=== PATIENT | female | born 1955 | race Asian ===

== ENCOUNTER 2020-08-21 10:23 | Emergency (ER) | payer OTHER ==
--- NOTE | 2020-08-21 10:41 | ED Physician Documentation ---
PD HPI DYSPNEA - Stated complaint Stated Complaint: SHORTNESS OF BREATHE, PAIN IN CHEST - Chief complaint Chief Complaint: Resp - History obtained from History obtained from: Patient - History of Present Illness Timing - onset: How many weeks ago (1) Timing - onset during: Light activity Timing - duration: Weeks (1) Timing - details: Gradual onset, Waxing and waning Inciting event(s): Other (has had 2 things: feeling of vertigo with head movement for a week, similar to prior episodes of vertigo. Also with feeling of dyspnea/chest tightness, episodic.). No: Out of meds, URI Associated symptoms: Cough (mild nonproductive), Chest pain / discomfort (at times). No: Fever, Hemoptysis, Wheezing, Palpitations, Bilateral edema Similar symptoms before: Has not had sx before (not the dyspnea, but has had episodic vertigo.) Recently seen: Not recently seen Review of Systems Constitutional: reports: Fatigue. denies: Fever, Chills, Myalgias Nose: denies: Rhinorrhea / runny nose, Congestion Throat: denies: Sore throat Cardiac: reports: Chest pain / pressure. denies: Palpitations, Pedal edema, Calf pain Respiratory: reports: Dyspnea, Cough. denies: Hemoptysis, Wheezing GI: reports: Nausea. denies: Abdominal Pain, Vomiting, Diarrhea Neurologic: reports: Generalized weakness. denies: Focal weakness, Numbness, Near syncope PD PAST MEDICAL HISTORY - Past Medical History Cardiovascular: None Respiratory: None Neuro: None Endocrine/Autoimmune: None HEENT: Other (episodic vertigo) - Present Medications Home Medications: Ambulatory Orders Medication Instructions Recorded Confirmed Aspirin [Aspirin EC] 81 mg PO DAILY 08/21/20 08/21/20 Atenolol [Tenormin] 50 mg PO DAILY 08/21/20 08/21/20 Lisinopril [Prinivil] 10 mg PO DAILY 08/21/20 08/21/20 Meclizine [Antivert] 25 mg PO Q6H PRN #30 tablet 08/21/20 Omeprazole 20 mg PO DAILY 08/21/20 08/21/20 Simvastatin [Zocor] 40 mg PO DAILY 08/21/20 08/21/20 Sucralfate [Carafate] 1 gm PO ACHS #28 tablet 08/21/20 metFORMIN [Glucophage] 500 mg PO TID 08/21/20 08/21/20 - Allergies Allergies/Adverse Reactions: Allergies Allergy/AdvReac Type Severity Reaction Status Date / Time No Known Drug Allergies Allergy Verified 08/21/20 10:27 PD ED PE NORMAL - Vitals Vital signs reviewed: Yes - General General: Alert and oriented X 3, No acute distress, Well developed/nourished - HEENT HEENT: PERRL, EOMI, Ears normal, Moist mucous membranes, Pharynx benign - Neck Neck: Supple, no meningeal sign, No adenopathy - Cardiac Cardiac: RRR, No murmur - Respiratory Respiratory: No respiratory distress, Clear bilaterally - Abdomen Abdomen: Normal bowel sounds, Soft, Non distended, No organomegaly, Other (mild discomfort epigastric area) - Back Back: No CVA TTP - Derm Derm: Normal color, Warm and dry - Extremities Extremities: No tenderness to palpate, Normal ROM s pain, No edema, No calf tenderness / cord Results - Vitals Vitals: Vital Signs - 24 hr 08/21/20 08/21/20 08/21/20 10:27 11:00 13:36 Temperature 36.8 C 36.9 C 36.7 C Heart Rate 92 76 96 Respiratory 16 18 18 Rate Blood Pressure 181/97 H 156/95 H 163/93 H O2 Saturation 97 97 100 Oxygen O2 Source Room air - EKG (time done) 10:45 Rate: Rate (enter#) (73) Rhythm: NSR [place]: Normal Intervals: Normal UT QRS: Normal Ischemia: Normal ST segments. No: ST elevation c/w ischemia, ST depression - Labs Labs: Laboratory Tests 08/21/20 08/21/20 08/21/20 10:45 10:45 10:45 WBC 7.0 RBC 4.31 Hgb 13.6 Hct 39.3 MCV 91.2 MCH 31.6 H MCHC 34.6 RDW 11.9 L Plt Count 286 MPV 10.9 H Neut # (Auto) 4.9 Lymph # (Auto) 1.5 [place] # (Auto) 0.3 Eos # (Auto) 0.2 Baso # (Auto) 0.1 Absolute Nucleated RBC 0.00 Nucleated RBC % 0.0 Sodium 142 Potassium 3.8 Chloride 99 L Carbon Dioxide 24 Anion Gap 19.0 H BUN 11 Creatinine 0.7 Estimated GFR (MDRD) 88 L Glucose 203 H Calcium 9.9 Magnesium 1.8 Total Bilirubin 0.8 AST 29 ALT 31 Alkaline Phosphatase 98 Troponin I High Sens < 2.3 L B-Natriuretic Peptide Total Protein 8.1 Albumin 4.7 Globulin 3.4 Albumin/Globulin Ratio 1.4 Lipase 28 08/21/20 10:45 WBC RBC Hgb Hct MCV MCH MCHC RDW Plt Count MPV Neut # (Auto) Lymph # (Auto) [place] # (Auto) Eos # (Auto) Baso # (Auto) Absolute Nucleated RBC Nucleated RBC % Sodium Potassium Chloride Carbon Dioxide Anion Gap BUN Creatinine Estimated GFR (MDRD) Glucose Calcium Magnesium Total Bilirubin AST ALT Alkaline Phosphatase Troponin I High Sens B-Natriuretic Peptide 64 Total Protein Albumin Globulin Albumin/Globulin Ratio Lipase - Rads (name of study) chest xray Radiology: Prelim report reviewed (no acute process), See rad report PD MEDICAL DECISION MAKING - ED course Complexity details: reviewed results, considered differential (has had vertigo positionally, with nausea. Having chest tightness at times. ECG,CXR and labs are okay. Consider possible GERD with the nausea as cause of chest discomfort. ), d/w patient Departure - Departure Disposition: Home, Self Care Clinical Impression: Vertigo, Chest tightness Clinical Impression: (Ruled Out): Congestive heart failure, Myocardial infarction Condition: Stable Record reviewed to determine appropriate education?: Yes Instructions: ED Dyspnea Shortness of Breath, ED Vertigo Unspecified Follow-Up: [facility] [Provider Group] Prescriptions: Meclizine [Antivert] 25 mg PO Q6H PRN #30 tablet PRN Reason: Vertigo Sucralfate [Carafate] 1 gm PO ACHS #28 tablet Comments: Continue with usual medicines. Meclizine every 6-8 hours if needed for vertigo. Your EKG, chest x-ray, blood tests are normal here. No signs of heart failure or heart attack. I presume your chest discomfort is from may be some reflux or esophageal problems. We can add sacral fate to coat the esophagus and stomach several times a day for the next week. Continue with your as her usual medicines. Recheck with your primary care if not improved over the next several days. Discharge Date/Time: 08/21/20 13:39
--- NOTE | 2020-08-21 11:27 | XRAY Report ---
PROCEDURE: Chest 1 View X-Ray INDICATIONS: dyspnea; left chest discomfort for couple days TECHNIQUE: One view of the chest was acquired. COMPARISON: None available. FINDINGS: Surgical changes and devices: None. Lungs and pleura: No pleural effusions or pneumothorax. Lungs are clear. Mediastinum: The aorta is prominent and tortuous. The cardiac contours are within normal limits. Bones and chest wall: No suspicious bony lesions. Overlying soft tissues appear unremarkable. IMPRESSION: Portable chest within normal limits for age. Reviewed by: Marty Carl MD on 08/21/2020 10:26 AM [facility] Approved by: Marty Carl MD on 08/21/2020 10:26 AM [facility] Station ID: [id number]
[2020-08-21 11:38] LABS: BASOPHILS # (AUTO) 0.1 10^3/uL (0.0-0.1); BASOPHILS % (AUTO) 0.9 %; EOSINOPHILS # (AUTO) 0.2 10^3/uL (0.0-0.7); EOSINOPHILS % (AUTO) 2.6 %; HGB - HEMOGLOBIN 13.6 g/dL (12.0-16.0); LYMPHOCYTES # (AUTO) 1.5 10^3/uL (1.5-3.5); LYMPHOCYTES % (AUTO) 21.5 %; MEAN CORPUSCULAR HEMOGLOBIN 31.6 pg (27.0-31.0); MEAN CORPUSCULAR HGB CONC 34.6 g/dL (32.0-36.0); MEAN CORPUSCULAR VOLUME 91.2 fL (81.0-99.0); MEAN PLATELET VOLUME 10.9 fL (7.9-10.8); MONOCYTES # (AUTO) 0.3 10^3/uL (0.0-1.0); MONOCYTES % (AUTO) 4.9 %; NEUTROPHILS # (AUTO) 4.9 10^3/uL (1.5-6.6); NEUTROPHILS % (AUTO) 69.5 %; PLT - PLATELET COUNT 286 10^3/uL (130-450); RED BLOOD COUNT 4.31 10^6/uL (4.20-5.40); RED CELL DISTRIBUTION WIDTH 11.9 % (12.0-15.0)
[2020-08-21 11:49] LABS: ALBUMIN 4.7 g/dL (3.2-5.5); ALBUMIN/GLOBULIN RATIO 1.4 (1.0-2.2); BILIRUBIN,TOTAL 0.8 mg/dL (0.2-1.0); CALCIUM 9.9 mg/dL (8.5-10.3); CREATININE 0.7 mg/dL (0.4-1.0); MAGNESIUM 1.8 mg/dL (1.7-2.8); TOTAL PROTEIN 8.1 g/dL (6.7-8.2)
[2020-08-21] MEDS ORDERED: MECLIZINE 12.5 MG TABLET PO STA (13:01)
[2020-08-21] MEDS ORDERED: MAG HYDROX/AL HYDROX/SIMETH 30 ML UDC PO STA (13:01)
[2020-08-21 13:38] VITALS: BP 163/93
== END 2020-08-21 13:39 | disposition home or self-care (01) ==
LOC: EDBD 10:23 → ED 10:23
DX: R42 Dizziness and giddiness (principal); R07.89 Other chest pain
CPT/HCPCS: 36415; 71045; 80053; 83690; 83735; 83880; 84484; 85025; 93005; 99284; A9270

== ENCOUNTER 2022-03-07 13:10 | Outpatient (CLI) | payer OTHER ==
--- NOTE | 2022-03-20 10:22 | Mammography Report ---
BILATERAL DIGITAL SCREENING MAMMOGRAM 3D/2D: 03/07/2022 Comparison is made to exams dated: 04/06/2014 mammogram and 04/07/2013 mammogram - [facility]. The tissue of both breasts is heterogeneously dense. This may lower the sensitivity of ma mmography. There is a possible developing oval asymmetry with an obscured and indistinct margin in the left frank st middle depth lateral region seen on the craniocaudal view only. No other significant masses, calcifications, or other findings are seen in either breast. IMPRESSION: INCOMPLETE: NEEDS ADDITIONAL IMAGING EVALUATION The possible developing oval asymmetry in the left breast is indeterminate. Additional views with po ssible ultrasound are recommended. Based on the Tyrer Cuzick model (a risk assessment model) the patients lifetime risk is 7.4% and her 10 year risk is 3.4%. According to the ACR, ACS, and NCCN guidelines, an annual breast MRI exam bertram g with mammogram is recommended if the patients lifetime risk is 20% or greater. This exam was interpreted at Station ID: [id number]. NOTE: For mammograms, a report in lay terms will be sent to the patient. Approximately 15% of breast malignancies will not be visualized mammographically. In the management of a palpable breast mass, a negative mammogram must not discourage biopsy of a clinically suspicious lesion. Electronically Signed By: Ebonie turner/felix:03/17/2022 17:06:51 ACR BI-RADS Category 0: Incomplete 3340F PARENCHYMAL PATTERN: (D) - The breast(s) demonstrate(s) heterogeneously dense fibroglandular parenchy ma. BI-RADS CATEGORY: (0) - 0 Mammo and [place] [id number] Immediate follow-up LATERALITY: (B)
== END 2022-03-07 13:11 | disposition home or self-care (01) ==
LOC: DI.N 13:10
PROVIDERS: ATTEND Internal Medicine
DX: Z12.31 Encounter for screening mammogram for malignant neoplasm of breast (principal); R92.8 Other abnormal and inconclusive findings on diagnostic imaging of breast